=== PATIENT | male | born 1950 | race Caucasian/White ===

== ENCOUNTER 2017-09-12 17:46 | Observation (INO) | payer MEDICARE, OTHER ==
[2017-09-12] MEDS ORDERED: Ketorolac Tromethamine 30 MG/ML VIAL ONE (18:10)
[2017-09-12] MEDS ORDERED: Diazepam 10 MG/2 ML SYRINGE IVP SCH (20:00)
--- NOTE | 2017-09-12 20:01 | CT ---
CT ABDOMEN AND PELVIS WITHOUT CONTRAST 09/12/17 HISTORY: Right sided flank pain. FINDINGS: The absence of oral and IV contrast reduces the sensitivity of the exam particularly for evaluation o f solid organs and bowel. There are mild dependent changes in the lung bases. No calcified gallstones are seen. No free air or free fluid is seen in the abdomen or pelvis. A normal appearing appendix is noted. There are punctate calculi in the kidneys bilaterally. A small cyst is seen in the right kidney. No c alculi is seen in the ureters on either side. No hydroureteronephrosis is noted. There is suggestion of a punctate calculus in the dependent portions of the urinary bladder on the right side. There are degenerative changes in the spine. A small hiatal hernia is noted. IMPRESSION: 1. Nonobstructing bilateral tiny renal calculi. 2. Probable recently passed right sided punctate calculus in the urinary bladder. POS: [facility]
[2017-09-12] MEDS ORDERED: Diazepam 5 MG TAB ONE (21:38)
[2017-09-12] MEDS ORDERED: HYDROcodone/Acetaminophen 5/325 mg Tablet PO PRN (21:46)
[2017-09-12] MEDS ORDERED: Morphine 4 MG/ML VIAL ONE (21:51)
[2017-09-13 00:40] VITALS: BMI 29.8
[2017-09-13] MEDS ORDERED: Diazepam 5 MG TAB PO PRN (00:55)
[2017-09-13] MEDS ORDERED: Melatonin 3 MG TAB PO PRN (00:55)
[2017-09-13] MEDS: Fentanyl 100 MCG/2 ML VIAL SLOW IVP PRN ×3 (01:12→14:56)
[2017-09-13] MEDS ORDERED: Cyclobenzaprine 10 MG TAB PO PRN (02:10)
[2017-09-13 04:35] LABS: #Eosinphils 0.2 thou/uL (0.0-0.7); #Lymphocytes 1.9 thou/uL (1.20-3.40); #Neutrophils 6.4 thou/uL (1.40-6.50); %Basophils 0.4 % (0.0-1.0); %Eosinophils 2.6 % (0.0-10.0); %Lymphocytes 20.2 % (21.0-51.0); %Monocytes 10.2 % (0.0-10.0); %Neutrophils 66.6 % (42.0-75.0); Hemoglobin 16.3 g/dL (14.0-18.0); Mean Corpuscular HGB CONC 35.9 g/dL (32.0-36.0); Mean Corpuscular Hemoglobin 33.2 pg (27.0-31.0); Mean Corpuscular Volume 92.3 fL (78.0-98.0); Mean Platelet Volume 7.6 fL (7.4-10.4); Platelet Count 162 thou/uL (130-400); RBC Distribution Width 12.9 % (11.5-14.5); White Blood Cell (WBC) Count 9.6 thou/uL (4.8-10.8)
[2017-09-13 04:58] LABS: Anion Gap 12 mmol/L (10-20); BUN (Urea Nitrogen) 15 mg/dL (8.4-25.7); Calc. Creatinine Clearance 87 mL/min (70-130); Calcium 9.3 mg/dL (7.8-10.44); Carbon Dioxide 26 mmol/L (23-31); Chloride 104 mmol/L (98-107); Estimated GFR-MDRD 74; Glucose 139 mg/dL (80-115); Potassium 4.2 mmol/L (3.5-5.1); Sodium 138 mmol/L (136-145)
[2017-09-13] MEDS: Levothyroxine Sodium 25 MCG TAB PO SCH (06:03)
--- NOTE | 2017-09-13 08:37 | HP ---
TIME OF EVALUATION: 07:55 p.m. PRIMARY CARE PHYSICIAN: FULL CODE. CHIEF COMPLAINT: Back pain. HISTORY OF PRESENT ILLNESS: This is a 67-year-old male patient with past medical history of occasion al flank pains and lower back pains, the patient came to the hospital after having severe right lower back pain to the point that he was unable to move, unable to stand up and walk, no clear triggers, n o alleviating factors. Patient has tried in the past few weeks NSAIDs, steroids that had been ordere d by his primary care doctor, with no improvement. REVIEW OF SYSTEMS: Constitutional: No fever, no chills, generalized weakness. Respiratory: No cou gh, sputum production, or shortness of breath. Cardiovascular: No chest pain, palpitations, or shor tness of breath. Gastrointestinal: No nausea, vomiting, diarrhea, or abdominal pain. Central Nervo us Systems: No dizziness, headache, or feeling lightheaded. Genitourinary: No burning on urination . Extremities: The patient has severe right lower back pain with inability to walk or bear weight w ith the right lower extremity. Other systems were reviewed and negative except for the findings ment ioned above. PAST MEDICAL AND SURGICAL HISTORY: Positive for left knee replacement, obesity, right inguinal herni a surgery, neck surgery, hypothyroidism, and GERD. PSYCHIATRIC HISTORY: No previous psychiatric history. ALLERGIES: No known drug allergies. REPORTED MEDICATIONS: Levothyroxine. PHYSICAL EXAMINATION: VITAL SIGNS: On presentation, blood pressure 142/80, heart rate 85, respiratory rate 19, temperature 98.1, pain 4/10, oxygen saturation 96% on room air. GENERAL APPEARANCE: By the time of my examination, the patient is alert, oriented, not in any acute distress. He does develop distress when in pain or trying to move around. HEAD AND EYES: Normal conjunctivae. Moist oral mucosa. Anicteric. NECK: No JVD. RESPIRATORY: Bilateral air entry. No rales, no wheezing. Symmetric expansion. CARDIOVASCULAR: Normal rate, regular rhythm. No murmurs, no gallop. No edema. ABDOMEN: Soft, normal bowel sounds. MUSCULOSKELETAL: Baseline range of motion and strength except for the right lower back area when he has developed severe pain with decreased range of motion, inability to bear weight with the right low er extremity. Symptoms are severe. SKIN: Warm and intact. No pallor, no rash, no redness. NEUROLOGIC: Baseline sensorium. No evidence of any new focal weakness. Baseline speech. Cranial n erve seems to be intact. PSYCHIATRIC: The patient is in good mood. No anxiety, oriented, optimal judgment. IMAGING: Abdomen and pelvis CT showed nonobstructing bilateral tiny renal calculi, probable recently passed right-sided punctate calculus in the urinary bladder. LABORATORY DATA: Pending. ASSESSMENT AND PLAN: The patient will be placed in the hospital with following medical condition. 1. Severe intractable right lower back pain, possible etiologies may be musculoskeletal since troy sarkar has had the pain for the past 2 weeks, has not improved with treatment with NSAIDs and steroids, it is related to movements, and reported cannot bear weight or even move on the table to get the CT scan done. The patient is needing extra medications to control the pain, including opioids, muscl e relaxants. By the time of my examination, the pain has improved. We will continue to monitor. We will do MRI in the morning. CT report read as a possible kidney stone in the bladder that might hav e passed, this could be in the differential. We will reassess the patient in the morning by my kiko wright and plan for further management. 2. Hypothyroidism, reconcile home meds, continue hormone replacement. 3. Gastroesophageal reflux disease, continue home medications. 4. Deep venous thrombosis prophylaxis. 5. The patient is high risk for complication given need for opioids to control the pain and also nee ding muscle relaxants like Valium for spasm control since the pain becomes very severe during the spa sm episodes.
[2017-09-13] MEDS ORDERED: Prevnar 13-Val Conj/PF 0.5 ML SYRINGE IM ONE (09:00)
--- NOTE | 2017-09-13 13:37 | MRI ---
MRI LUMBAR SPINE WITH AND WITHOUT IV CONTRAST: Date: 09/13/17 PROVIDED CLINICAL HISTORY: Severe low back pain. FINDINGS: Five lumbar vertebral bodies are assumed. Lumbar alignment appears normal. Vertebral body heights are preserved. No focal concerning regional marrow signal abnormality. Visualized extraspinal soft tissu es appear unremarkable. The conus medullaris is normal in signal and terminates at an appropriate lev el. At L1-2, there is no significant central canal or foraminal narrowing apparent. At L2-3, there is no significant central canal or foraminal narrowing apparent. Mild bilateral facet arthritis. At L3-4, there is a broad based disc bulge and bilateral facet arthritis. There is mild right foramin al narrowing. At L4-5, there is a broad based disc bulge and bilateral facet arthritis. There is mild left foramina l narrowing. No significant central canal stenosis. At L5-S1, there is a broad based disc bulge and bilateral facet arthritis. There is a superimposed sm all central disc herniation which approximates, but does not clearly displace the traversing S1 nerve roots. Bilateral facet arthritis and disc bulge produce bilateral foraminal narrowing, severe left o f midline. There is no evidence for abnormal contrast enhancement. IMPRESSION: Lower lumbar disc and facet degenerative changes producing canal and foraminal narrowing as above. POS: [facility]
--- NOTE | 2017-09-13 15:09 | PDOC.PN ---
- Subjective Encounter Start Date: 09/13/17 Encounter Start Time: 15:08 Subjective: c/o nausea after receiving Fentanyl. -: back pain about the same - Objective MAR Reviewed: Yes Vital Signs & Weight: Vital Signs (12 hours) Temp Pulse Resp BP Pulse Ox 09/13/17 08:00 97.9 F 79 16 99 09/13/17 07:21 97.9 F 79 16 138/80 98 09/13/17 04:02 97.8 F 70 18 135/83 99 Weight Weight 185 lb I&O: 09/12/17 09/13/17 09/14/17 06:59 06:59 06:59 Intake Total 240 480 Output Total 250 Balance -10 480 Result Diagrams: 09/13/17 03:23 09/13/17 03:23 Additional Labs: labs reviewed Phys Exam - Physical Examination Constitutional: NAD HEENT: PERRLA, moist MMs, sclera anicteric, oral pharynx no lesions Neck: no nodes, no JVD, supple, full ROM Respiratory: no wheezing, no rales, no rhonchi, clear to auscultation bilateral Cardiovascular: RRR, no significant murmur Gastrointestinal: soft, non-tender, no distention, positive bowel sounds Musculoskeletal: no edema, pulses present tenderness to R Post -sup iloac spine Neurological: non-focal, normal sensation, moves all 4 limbs Psychiatric: normal affect, A&O x 3 Skin: no rash Dx/Plan (1) Intractable low back pain Code(s): M54.5 - LOW BACK PAIN Status: Acute (2) Hypothyroid Code(s): E03.9 - HYPOTHYROIDISM, UNSPECIFIED Status: Chronic - Plan plan discussed w/ family, DVT proph w/SCDs Lumbar MRI discussed w NS-nothing acute But severe OA -: will consult pain medicine for penitentiary pain control & DC options -: Check Pelvic Xray in am to r/o ischial mass/lesionsinfection/fracture -: start IVF to prevent renal injury from contrast. -: add felexeril TID.reduce Fentanyl.Add prn toradol.am labs * . Review of Systems - Review of Systems ENT: negative: Ear Pain, Ear Discharge, Nose Pain, Nose Discharge, Nose Congestion, Mouth Pain, Mouth Swelling, Throat Pain, Throat Swelling, Other Respiratory: negative: Cough, Dry, Shortness of Breath, Hemoptysis, SOB with Excertion, Pleuritic Pain, Sputum, Wheezing Cardiovascular: negative: chest pain, palpitations, orthopnea, paroxysmal nocturnal dyspnea, edema, light headedness, other Gastrointestinal: negative: Nausea, Vomiting, Abdominal Pain, Diarrhea, Constipation, Melena, Hematochezia, Other Genitourinary: negative: Dysuria, Frequency, Incontinence, Hematuria, Retention , Other Musculoskeletal: Back Pain. negative: Neck Pain, Shoulder Pain, Arm Pain, Hand Pain, Leg Pain, Foot Pain, Other Skin: negative: Rash, Lesions, Manuel, Bruising, Other Neurological: negative: Weakness, Numbness, Incoordination, Change in Speech, Confusion, Seizures, Other - Medications/Allergies Allergies/Adverse Reactions: Allergies Allergy/AdvReac Type Severity Reaction Status Date / Time codeine Allergy Intermediate Emesis Verified 09/13/17 00:38 Medications: Current Medications Acetaminophen (Tylenol) 650 mg PO Q4H PRN PRN Reason: Headache/Fever or Pain Diazepam (Valium) 5 mg PO Q8H PRN PRN Reason: Anxiety/Agitation Fentanyl (Sublimaze) 50 mcg SLOW IVP Q2H PRN PRN Reason: Pain Last Admin: 09/13/17 14:56 Dose: 50 mcg Levothyroxine Sodium (Synthroid) 25 mcg PO 0600 [facility] Last Admin: 09/13/17 06:03 Dose: 25 mcg Melatonin (Melatonin) 3 mg PO HS PRN PRN Reason: Insomnia Pantoprazole Sodium (Protonix) 40 mg PO DAILY [facility] Last Admin: 09/13/17 07:42 Dose: 40 mg
[2017-09-13] MEDS ORDERED: Ondansetron HCl/PF 4 MG/2 ML Vial SLOW IVP PRN (16:30)
[2017-09-13] MEDS ORDERED: Ketorolac Tromethamine 30 MG/ML VIAL IVP PRN (16:47)
[2017-09-13] MEDS ORDERED: Fentanyl 100 MCG/2 ML VIAL SLOW IVP PRN (16:47)
[2017-09-13] MEDS ORDERED: Cyclobenzaprine 10 MG TAB PO SCH (17:00)
[2017-09-13] MEDS: Sodium Chloride 0.9% 1,000 ML IV SCH (17:17)
[2017-09-13] MEDS: Acetaminophen 325 MG TAB PO PRN (22:36)
[2017-09-14 04:18] LABS: Anion Gap 12 mmol/L (10-20); BUN (Urea Nitrogen) 14 mg/dL (8.4-25.7); Calc. Creatinine Clearance 79 mL/min (70-130); Calcium 9.2 mg/dL (7.8-10.44); Carbon Dioxide 27 mmol/L (23-31); Chloride 107 mmol/L (98-107); Estimated GFR-MDRD 67; Glucose 101 mg/dL (80-115); Potassium 4.9 mmol/L (3.5-5.1); Sodium 141 mmol/L (136-145)
[2017-09-14] MEDS: Levothyroxine Sodium 25 MCG TAB PO SCH (07:23)
[2017-09-14 07:32] VITALS: BP 111/72; TEMP 97.9
[2017-09-14] MEDS: Acetaminophen 325 MG TAB PO PRN (07:54)
[2017-09-14] MEDS: Sodium Chloride 0.9% 1,000 ML IV SCH (07:55)
--- NOTE | 2017-09-14 14:27 | RAD ---
LEFT HIP TWO VIEWS: 09/14/17 HISTORY: Hip and back pain. FINDINGS: Joint space is preserved. Mild subchondral sclerosis. No acute fracture, dislocation, or aggressive o sseous erosions. Femoral head contours are maintained. IMPRESSION: Very mild osteoarthritic changes left hip. POS: [facility]
--- NOTE | 2017-09-14 15:00 | RAD ---
HIP RIGHT TWO VIEWS: 09/14/17 HISTORY: Right hip and back pain. FINDINGS: Joint space is preserved. Mild osteophytosis and subchondral sclerosis . Femoral head contour is main tained. No acute fracture, dislocation or aggressive osseous erosions. Incidental note of a large ent hesophyte projecting anteriorly from the anterior superior iliac spine at the origin of the rectus fe camilo muscle. IMPRESSION: Mild osteoarthritic changes right hip. POS: [facility]
--- NOTE | 2017-09-14 18:27 | DIS ---
DATE OF ADMISSION: 09/13/2017 DATE OF DISCHARGE: 09/14/2017 CONDITION AT THE TIME OF DISCHARGE: Stable and improved. DISCHARGE DIAGNOSES: 1. Right-sided muscle spasm in the right paraspinal region. 2. Possibly passed right-sided renal stone. 3. Chronic low back pain. 4. Osteoarthritis of the spine. 5. Hypothyroidism. DISCHARGE DISPOSITION: Home. DISCHARGE MEDICATIONS: Flexeril 10 mg p.o. t.i.d. for the next 3 days and resume home medications as follows: Omeprazole 1 tablet daily, Medrol Dosepak, Synthroid 25 mcg daily, diclofenac 50 mg p.o. b .i.d. PRIMARY CARE PHYSICIAN: Michael Mansfield MD OUTPATIENT REFERRAL: Pain medicine, Dr. Sparks. PROCEDURES DONE IN THE HOSPITAL: 1. CT scan of the abdomen and pelvis, which shows a nonobstructing bilateral tiny renal calculi, pos sibly recently passed right-sided punctate calculus in the bladder. 2. Lower spinal MRI, which showed lower lumbar disk and facet degenerative changes producing canal a nd foraminal narrowing at multiple levels. 3. X-ray of the right and left hip, which is negative for any acute changes. HISTORY OF PRESENT ILLNESS: Mr. Garcia is a 67-year-old male without any significant past medical hi story other than chronic back pain and hypothyroidism, who presented to the emergency room with acute onset of sharp right-sided lower back pain. He was unable to move or do anything, so 911 was called . In the ER, he was hemodynamically stable and underwent a CT scan of the abdomen and pelvis, which showed possible recently passed calculus in the urinary bladder. He was admitted under observation s tat for severe intractable right-sided lower back pain. A lumbar spine MRI was ordered by the admi tting physician. Please see admission history and physical for further details. HOSPITAL COURSE: Mr. Garcia actually did fairly well after he was started on Flexeril t.i.d. His pa in medications did make him nauseated, so they were tapered off and by the time of discharge, he was back to being himself just with a little soreness in his right paraspinal area. No neurological defi cits were noticed. He was given prescription for the Flexeril, which he will continue to take for e next 2-3 days. He is instructed to use Tylenol preferentially and not use diclofenac as much if po ssible. He is instructed to have physical therapy at the place where he works. He works at [employer]. He is instructed to follow up with pain medication doctors in the clinic for long-term arvind n control. He is currently not on any narcotics and none is prescribed for him at the time of discha rge. He was seen and examined prior to discharge. He was sitting up in chair and feeling much better. No acute distress. Vital signs were stable. Temperature 97.9, heart rate 65, blood pressure 111/72. Chest was clear to auscultation bilaterally. Rate and rhythm were regular. Spinal examination was u nremarkable. LABORATORY EXAMINATION: CBC and BMP unremarkable.
== END 2017-09-14 15:07 | disposition home or self-care (01) ==
LOC: ERS 17:46 → T4-A 09-13 00:08
PROVIDERS: ADMIT Family Medicine; ATTEND Family Medicine
DX: M62.838 Other muscle spasm (principal); G89.29 Other chronic pain; M54.5 Low back pain; E03.9 Hypothyroidism, unspecified; K21.9 Gastro-esophageal reflux disease without esophagitis; M47.896 Other spondylosis, lumbar region; E66.9 Obesity, unspecified; Z68.29 Body mass index [BMI] 29.0-29.9, adult; Z79.1 Long term (current) use of non-steroidal anti-inflammatories (NSAID); Z79.52 Long term (current) use of systemic steroids; Z79.899 Other long term (current) drug therapy; Z88.5 Allergy status to narcotic agent; Z96.652 Presence of left artificial knee joint
CPT/HCPCS: 72158; 73502 ×2; 74176; 80048 ×2; 85025; 96361 ×2; 96374; 96375 ×2; 96376 ×2; 99285; G0378 ×2; 36415; 90471; 90670; G0009; J1885; J2270; J2405; J3010; J3360

== ENCOUNTER 2020-03-26 08:27 | Outpatient (CLI) | payer MEDICARE ==
[2020-03-26] MEDS ORDERED: Iopamidol 370 76% 100 ML VIAL ONE (11:26)
== END 2020-03-26 08:28 | disposition home or self-care (01) ==
LOC: CT 08:27
PROVIDERS: ATTEND Internal Medicine Cardiovascular Disease
DX: R06.02 Shortness of breath (principal); K55.1 Chronic vascular disorders of intestine
CPT/HCPCS: 71275; 82565; Q9967

== ENCOUNTER 2020-05-24 14:29 | Outpatient (CLI) | payer MEDICARE | END 2020-05-24 14:30 | disposition home or self-care (01) | LOC: CTENTCT 14:29 | PROVIDERS: ATTEND Otolaryngology Plastic Surgery within the Head & Neck | DX: J32.8 Other chronic sinusitis (principal) | CPT/HCPCS: 70486 ==